=== PATIENT | male | born 1975 | race Caucasian/White ===

== ENCOUNTER 2022-02-03 11:43 | Emergency (ER) | payer BC ==
[~2022-02-03] VITALS: Ht 177.8 cm; Wt 91.0 kg
[2022-02-03] MEDS ORDERED: MORPHINE SULFATE 4 MG/ML CPJ (NOT FOR IM USE) IV ONE (12:15)
[2022-02-03] MEDS ORDERED: ONDANSETRON HCL 4MG/2ML INJ IV ONE ×2 (12:15→15:30)
[2022-02-03] MEDS ORDERED: SODIUM CHLORIDE 0.9% 1,000 ML IV ONE ×2 (12:15→13:15)
[2022-02-03 12:33] LABS: BASOPHILS % 0.3 % (0.0-2.0); EOSINOPHILS % 0.6 % (0.0-5.0); HEMATOCRIT. 45.4 % (42.0-52.0); HEMOGLOBIN. 15.5 g/dL (14.0-18.0); LYMPHOCYTES % 19.9 % (20.0-50.0); MEAN CORPUSCULAR VOLUME 82.3 fL (80.0-94.0); MEAN PLATELET VOLUME 8.5 fl (7.4-10.4); NEUTROPHILS % 72.2 % (40.0-76.0); PLATELET 176 x1000/uL (130-400); RED BLOOD CELL COUNT 5.52 mill/uL (4.7-6.1); RED CELL DISTRIBUTION WIDTH 13.3 % (11.6-14.6)
[2022-02-03 12:43] LABS: CHLORIDE 110 mEq/L (98-107)
[2022-02-03] MEDS ORDERED: MORPHINE SULFATE 2 MG/ML CPJ (NOT FOR IM USE) IV ONE ×2 (13:15→14:15)
[2022-02-03] MEDS ORDERED: POTASSIUM-SODIUM PHOSPHATE POWDER PACKET PO NR (14:00)
[2022-02-03] MEDS ORDERED: ESMOLOL 2500MG PREMIX 250 ML IV ONE ×3 (14:00→18:30)
[2022-02-03] MEDS ORDERED: ESMOLOL 2500MG PREMIX 250 ML IV SCH (14:15)
[2022-02-03 15:03] LABS: PARTIAL THROMBOPLASTIN TIME 26.6 sec (23.4-31.0); PROTHROMBIN TIME 11.2 sec (9.6-11.0)
[2022-02-03] MEDS ORDERED: HYDROMORPHONE HCL/PF 2MG/ML CPJ IV ONE (15:45)
[2022-02-03 16:50] VITALS: BP 177/101
[2022-02-03] MEDS ORDERED: NICARDIPINE 100 MG in SODIUM CHLORIDE 0.9% 60 ML IV ONE (17:15)
== END 2022-02-03 17:41 | disposition short-term general hospital (02) ==
LOC: ER 11:43
DX: I71.01 Dissection of thoracic aorta (principal); R07.89 Other chest pain; E87.6 Hypokalemia; N17.9 Acute kidney failure, unspecified; I10 Essential (primary) hypertension; Z20.822 Contact with and (suspected) exposure to COVID-19; Z90.49 Acquired absence of other specified parts of digestive tract
CPT/HCPCS: 36415; 71045; 71275; 74174; 80053; 83690; 83880; 84484; 85025; 85610; 85730; 87426; 93005; 96365; 96366; 96375; 96376; 99291; C9803; J1170; J2270; J2405; J3490; J7030; J7050